=== PATIENT | female | born 1950 | race Caucasian/White ===

== ENCOUNTER 2022-09-23 14:17 | Emergency (ER) | payer MEDICARE ==
[2022-09-23 15:12] LABS: #Basophils 0.1 10x3/uL (0.0-0.2); #Monocytes 0.5 10x3/uL (0.0-1.1); #Neutrophils 12.1 10x3/uL (1.5-8.4); %Basophils 0.4 % (0.0-2.0); %Eosinophils 0.1 % (0.0-6.0); %Lymphocytes 11.6 % (18.0-47.0); %Monocytes 3.5 % (0.0-10.0); %Neutrophils 83.8 % (40.0-75.0); Hemoglobin 12.2 g/dL (12.0-15.5); Mean Corpuscular HGB CONC 35.3 g/dL (32.0-36.0); Mean Corpuscular Hemoglobin 31.6 pg (27.0-33.0); Mean Corpuscular Volume 89.6 fl (81.6-98.3); Mean Platelet Volume 11.8 fl (7.4-10.4); Platelet Count 273 10x3/uL (150-450); RBC Distribution Width 14.4 % (11.5-14.5); Red Blood Cell (RBC) Count 3.86 10x6/uL (3.90-5.03); White Blood Cell (WBC) Count 14.4 10x3/uL (3.5-10.5)
[2022-09-23 15:22] LABS: INR-International Normal Ratio 1.2; PTT 34.9 sec (22.0-33.0); Prothrombin Time 12.8 sec (9.5-12.1)
[2022-09-23 15:27] LABS: ALT (SGPT) 27 U/L (8-55); AST (SGOT) 24 U/L (5-34); Albumin 2.6 g/dL (3.4-4.8); Alkaline Phosphatase 184 U/L (40-110); Anion Gap 13 mmol/L (10-20); BUN (Urea Nitrogen) 27 mg/dL (9.8-20.1); Bilirubin, Total 0.7 mg/dL (0.2-1.2); Calc. Creatinine Clearance 0 mL/min (70-130); Calcium 8.1 mg/dL (7.8-10.44); Carbon Dioxide 18 mmol/L (23-31); Chloride 105 mmol/L (98-107); Estimated GFR 36; Globulin 2.6 g/dL (2.4-3.5); Glucose 256 mg/dL (80-115); Lipase 11 U/L (8-78); Magnesium 1.7 mg/dL (1.6-2.6); Potassium 4.2 mmol/L (3.5-5.1); Protein, Total 5.2 g/dL (5.8-8.1); Sodium 132 mmol/L (136-145)
[2022-09-23 16:01] LABS: SARS-CoV-2 NAA Rapid Test DETECTED (NotDetected)
== END 2022-09-23 18:20 | disposition home or self-care (01) ==
LOC: CSHERS 14:17
DX: U07.1 COVID-19 (principal); E03.9 Hypothyroidism, unspecified; K21.9 Gastro-esophageal reflux disease without esophagitis; I10 Essential (primary) hypertension
CPT/HCPCS: 71045; 83690; 83735; 83880; 84439; 84484; 85610; 85730; U0002; 80053; 84443; 85025; 99285

== ENCOUNTER 2022-09-25 10:31 | Inpatient (IN) | payer MEDICARE ==
[~2022-09-25 10:31] MED LIST: Iopamidol 370 76% 100 ML VIAL ONE
[2022-09-25 11:23] LABS: Bilirubin Neg (Negative); Blood, Urine Negative (Negative); Clarity Clear (Clear); Glucose, Urine (Dipstick) 250 mg/dL (Negative); Ketone, Urine 5 mg/dL (Negative); Leukocyte Negative (Negative); Nitrite Negative (Negative); Protein, Urine (Dipstick) Negative (Neg-Trace); Specific Gravity, Urine 1.015 (1.005-1.030); Urobilinogen Normal mg/dL (Less than 2)
[2022-09-25 11:24] LABS: #Monocytes 0.4 10x3/uL (0.0-1.1); #Neutrophils 12.7 10x3/uL (1.5-8.4); %Basophils 0.3 % (0.0-2.0); %Lymphocytes 6.1 % (18.0-47.0); %Monocytes 2.9 % (0.0-10.0); %Neutrophils 89.7 % (40.0-75.0); Hemoglobin 11.2 g/dL (12.0-15.5); Mean Corpuscular HGB CONC 34.6 g/dL (32.0-36.0); Mean Corpuscular Hemoglobin 31.6 pg (27.0-33.0); Mean Corpuscular Volume 91.5 fl (81.6-98.3); Mean Platelet Volume 12.2 fl (7.4-10.4); Platelet Count 252 10x3/uL (150-450); RBC Distribution Width 15.1 % (11.5-14.5); Red Blood Cell (RBC) Count 3.54 10x6/uL (3.90-5.03); White Blood Cell (WBC) Count 14.1 10x3/uL (3.5-10.5)
[2022-09-25 11:41] LABS: Acetaminophen Less than 10.0 mcg/mL (10.0-30.0); Alcohol Less than 10 mg/dL (Less than 10); Salicylate Less than 8.0 mg/dL (15.0-30.0)
[2022-09-25 11:43] LABS: ALT (SGPT) 25 U/L (8-55); AST (SGOT) 27 U/L (5-34); Albumin 2.3 g/dL (3.4-4.8); Alkaline Phosphatase 167 U/L (40-110); Anion Gap 17 mmol/L (10-20); BUN (Urea Nitrogen) 16 mg/dL (9.8-20.1); Bilirubin, Total 0.8 mg/dL (0.2-1.2); Calc. Creatinine Clearance 0 mL/min (70-130); Calcium 7.7 mg/dL (7.8-10.44); Carbon Dioxide 12 mmol/L (23-31); Chloride 107 mmol/L (98-107); Estimated GFR 40; Globulin 2.3 g/dL (2.4-3.5); Lipase 12 U/L (8-78); Potassium 4.4 mmol/L (3.5-5.1); Protein, Total 4.6 g/dL (5.8-8.1); Sodium 132 mmol/L (136-145)
[2022-09-25 11:49] LABS: Glucose 452 mg/dL (80-115)
[2022-09-25 11:50] LABS: Amphetamine Not Detected (NotDetected); Barbiturates Screen Not Detected (NotDetected); Benzodiazepine Screen Not Detected (NotDetected); Cocaine Metabolite Screen Not Detected (NotDetected); Methadone Not Detected (NotDetected); Methamphetamine Not Detected (NotDetected); Opiate Screen Detected (NotDetected); Oxycodone Screen Not Detected (NotDetected); Phencyclidine (PCP) Not Detected (NotDetected); THC/Cannabinoid Screen Not Detected (NotDetected); Tricyclic Screen Not Detected (NotDetected)
[2022-09-25] MEDS ORDERED: HumaLOG 300 UNITS/3 ML VIAL SC SCH (12:15)
[2022-09-25 14:44] LABS: Lactic Acid 3.3 mmol/L (0.5-2.2)
[2022-09-25] MEDS ORDERED: Benzonatate 100 MG CAP PO PRN (15:19)
[2022-09-25] MEDS ORDERED: Acetaminophen 650 MG Suppository PR PRN (15:19)
[2022-09-25] MEDS ORDERED: Ondansetron PF 4 MG/2 ML Vial IVP PRN (15:25)
[2022-09-25] MEDS ORDERED: Dextrose 50% Abboject 50 ML SYRINGE SLOW IVP PRN (15:28)
[2022-09-25] MEDS ORDERED: Dextrose 5% in Water 1,000 ML IV PRN (15:28)
[2022-09-25] MEDS ORDERED: Nicotine 14 MG PATCH TD SCH (15:30)
[2022-09-25 16:21] LABS: Troponin I 0.026 ng/mL (< 0.028)
[2022-09-25] MEDS ORDERED: Ventolin HFA Inhaler 60 PUFF INHALER INH PRN (17:36)
[2022-09-25] MEDS: Nicotine 14 MG PATCH TD SCH (18:15)
[2022-09-25] MEDS: Sodium Chloride 0.9% 1,000 ML IV SCH (18:15)
[2022-09-25 18:37] LABS: Troponin I 0.683 ng/mL (< 0.028)
[2022-09-25 20:03] VITALS: BMI 23.1
[2022-09-25] MEDS: (RENAL) NIRMATRELVIR 150 MG/RITONAVIR 100 MG TABLET PO SCH (20:51)
[2022-09-25] MEDS: HumaLOG 300 UNITS/3 ML VIAL SC PRN (23:58)
[2022-09-26 00:36] LABS: Troponin I 0.031 ng/mL (< 0.028)
[2022-09-26] MEDS: Sodium Chloride 0.9% 1,000 ML IV SCH (06:26)
[2022-09-26] MEDS: HumaLOG 300 UNITS/3 ML VIAL SC PRN ×2 (06:28→21:13)
[2022-09-26 07:48] LABS: Anion Gap 14 mmol/L (10-20); BUN (Urea Nitrogen) 15 mg/dL (9.8-20.1); Calc. Creatinine Clearance 47 mL/min (70-130); Calcium 7.3 mg/dL (7.8-10.44); Carbon Dioxide 13 mmol/L (23-31); Chloride 114 mmol/L (98-107); Estimated GFR 53; Glucose 189 mg/dL (80-115); Potassium 4.5 mmol/L (3.5-5.1); Sodium 136 mmol/L (136-145)
[2022-09-26 07:49] LABS: #Monocytes 0.6 10x3/uL (0.0-1.1); #Neutrophils 16.3 10x3/uL (1.5-8.4); %Basophils 0.2 % (0.0-2.0); %Eosinophils 0.1 % (0.0-6.0); %Lymphocytes 5.1 % (18.0-47.0); %Monocytes 3.3 % (0.0-10.0); %Neutrophils 90.8 % (40.0-75.0); Hemoglobin 10.8 g/dL (12.0-15.5); Mean Corpuscular HGB CONC 33.3 g/dL (32.0-36.0); Mean Corpuscular Hemoglobin 31.5 pg (27.0-33.0); Mean Corpuscular Volume 94.5 fl (81.6-98.3); Mean Platelet Volume 12.8 fl (7.4-10.4); Platelet Count 212 10x3/uL (150-450); RBC Distribution Width 15.3 % (11.5-14.5); Red Blood Cell (RBC) Count 3.43 10x6/uL (3.90-5.03)
[2022-09-26] MEDS: (RENAL) NIRMATRELVIR 150 MG/RITONAVIR 100 MG TABLET PO SCH ×2 (08:15→20:57)
[2022-09-26] MEDS: Acetaminophen 325 MG TAB PO PRN (08:40)
[2022-09-26] MEDS ORDERED: Lantus 1000 UNITS/10 ML VIAL SC SCH (13:00)
[2022-09-26] MEDS: Nicotine 14 MG PATCH TD SCH (14:35)
[2022-09-26] MEDS ORDERED: Piperacillin/Tazobactam 4.5 GM in Sodium Chloride 0.9% 100 ML IVPB SCH (16:00)
[2022-09-26] MEDS ORDERED: Vancomycin HCl 1 GM in Sodium Chloride 0.9% 250 ML 250 ML IVPB SCH (16:00)
[2022-09-26] MEDS ORDERED: Piperacillin/Tazobactam 3.375 GM in Sodium Chloride 0.9% 100 ML IVPB SCH (16:15)
[2022-09-26] MEDS: Liothyronine Sodium 5 MCG TAB PO SCH (20:56)
[2022-09-26] MEDS: Piperacillin/Tazobactam 3.375 GM in Sodium Chloride 0.9% 100 ML IVPB SCH (20:56)
[2022-09-27] MEDS: Piperacillin/Tazobactam 3.375 GM in Sodium Chloride 0.9% 100 ML IVPB SCH (04:17)
[2022-09-27 04:49] LABS: Anion Gap 11 mmol/L (10-20); BUN (Urea Nitrogen) 11 mg/dL (9.8-20.1); Calc. Creatinine Clearance 57 mL/min (70-130); Calcium 7.3 mg/dL (7.8-10.44); Carbon Dioxide 16 mmol/L (23-31); Chloride 116 mmol/L (98-107); Estimated GFR 67; Glucose 87 mg/dL (80-115); Potassium 3.2 mmol/L (3.5-5.1); Sodium 140 mmol/L (136-145)
[2022-09-27 05:35] LABS: #Monocytes 0.6 10x3/uL (0.0-1.1); #Neutrophils 11.3 10x3/uL (1.5-8.4); %Basophils 0.1 % (0.0-2.0); %Eosinophils 0.2 % (0.0-6.0); %Lymphocytes 14.2 % (18.0-47.0); %Monocytes 4.4 % (0.0-10.0); %Neutrophils 80.6 % (40.0-75.0); Hemoglobin 9.7 g/dL (12.0-15.5); Mean Corpuscular HGB CONC 35.9 g/dL (32.0-36.0); Mean Corpuscular Hemoglobin 31.6 pg (27.0-33.0); Mean Corpuscular Volume 87.9 fl (81.6-98.3); Mean Platelet Volume 12.7 fl (7.4-10.4); Platelet Count 246 10x3/uL (150-450); RBC Distribution Width 14.6 % (11.5-14.5); Red Blood Cell (RBC) Count 3.07 10x6/uL (3.90-5.03)
[2022-09-27] MEDS ORDERED: Levothyroxine Sodium 112 MCG TAB PO SCH (06:00)
[2022-09-27] MEDS ORDERED: Lantus 1000 UNITS/10 ML VIAL SC SCH ×2 (09:00→12:54)
[2022-09-27] MEDS ORDERED: Vancomycin HCl 750 MG in Sodium Chloride 0.9% 250 ML 250 ML IVPB SCH (09:00)
[2022-09-27] MEDS: Acetaminophen 325 MG TAB PO PRN (09:51)
[2022-09-27] MEDS: Liothyronine Sodium 5 MCG TAB PO SCH ×2 (09:52→21:01)
[2022-09-27] MEDS: (RENAL) NIRMATRELVIR 150 MG/RITONAVIR 100 MG TABLET PO SCH ×2 (09:54→22:54)
[2022-09-27] MEDS: HumaLOG 300 UNITS/3 ML VIAL SC PRN ×3 (10:00→17:35)
[2022-09-27] MEDS ORDERED: Levothyroxine 100 MCG SDV IVP SCH (13:30)
[2022-09-27] MEDS: Nicotine 14 MG PATCH TD SCH (13:52)
[2022-09-27 14:03] LABS: ALT (SGPT) 28 U/L (8-55); AST (SGOT) 39 U/L (5-34); Albumin 2.2 g/dL (3.4-4.8); Alkaline Phosphatase 166 U/L (40-110); Bilirubin, Direct 0.3 mg/dL (0.1-0.3); Bilirubin, Total 0.5 mg/dL (0.2-1.2); Protein, Total 4.6 g/dL (5.8-8.1)
[2022-09-27 14:23] LABS: Syphilis Antibody Nonreactive (Nonreactive); Syphilis Antibody Index 0.23 S/CO (<1.00 Non-Reactive)
[2022-09-27 14:24] LABS: HIV (1/2) Antibody/Antigen Non-Reactive (NonReactive); HIV 1/2 INDEX 0.06 S/CO (<1.00)
[2022-09-27] MEDS: cefTRIAXone\\ROCEPHIN 1 GM in Sodium Chloride 0.9% 100 ML IVPB SCH (14:28)
[2022-09-27] MEDS: metroNIDAZOLE 500 MG in Premix Bag 1 BAG IVPB SCH ×2 (14:31→21:01)
[2022-09-27 14:38] LABS: Free T4 (Free Thyroxine) 0.42 ng/dL (0.70-1.48)
[2022-09-27] MEDS ORDERED: URSODIOL 250 MG PO SCH (17:00)
[2022-09-27] MEDS: Atorvastatin Calcium 40 MG TAB PO SCH (21:01)
[2022-09-28] MEDS: metroNIDAZOLE 500 MG in Premix Bag 1 BAG IVPB SCH ×3 (05:44→19:18)
[2022-09-28] MEDS ORDERED: Levothyroxine 100 MCG SDV IVP SCH (06:00)
[2022-09-28 06:25] LABS: INR-International Normal Ratio 1.2; PTT 31.7 sec (22.0-33.0); Prothrombin Time 12.9 sec (9.5-12.1)
[2022-09-28 06:29] LABS: ALT (SGPT) 26 U/L (8-55); AST (SGOT) 31 U/L (5-34); Albumin 2.1 g/dL (3.4-4.8); Alkaline Phosphatase 143 U/L (40-110); Anion Gap 12 mmol/L (10-20); BUN (Urea Nitrogen) 8 mg/dL (9.8-20.1); Bilirubin, Total 0.4 mg/dL (0.2-1.2); Calc. Creatinine Clearance 64 mL/min (70-130); Calcium 7.7 mg/dL (7.8-10.44); Carbon Dioxide 18 mmol/L (23-31); Chloride 114 mmol/L (98-107); Estimated GFR 78; Globulin 2.3 g/dL (2.4-3.5); Protein, Total 4.4 g/dL (5.8-8.1); Sodium 141 mmol/L (136-145)
[2022-09-28 06:48] LABS: Critical Call Chemistry 2NO.LG; Glucose 19 mg/dL (80-115); Potassium 2.6 mmol/L (3.5-5.1)
[2022-09-28] MEDS ORDERED: D5 1/2 NS w/40 mEq KCL 1,000 ML IV SCH (07:15)
[2022-09-28] MEDS ORDERED: Potassium Chloride 20 MEQ TAB PO SCH ×2 (08:00→15:30)
[2022-09-28] MEDS: Potassium Chloride 20 MEQ in Premix Bag 1 BAG IVPB SCH ×2 (08:38→12:20)
[2022-09-28] MEDS: Liothyronine Sodium 5 MCG TAB PO SCH ×2 (08:39→19:18)
[2022-09-28 08:48] LABS: #Monocytes 0.8 10x3/uL (0.0-1.1); %Basophils 0.2 % (0.0-2.0); %Lymphocytes 4.5 % (18.0-47.0); %Monocytes 4.5 % (0.0-10.0); %Neutrophils 89.7 % (40.0-75.0); Hemoglobin 11.3 g/dL (12.0-15.5); Mean Corpuscular Hemoglobin 32.1 pg (27.0-33.0); Mean Corpuscular Volume 91.8 fl (81.6-98.3); Mean Platelet Volume 12.4 fl (7.4-10.4); Platelet Count 272 10x3/uL (150-450); RBC Distribution Width 15.6 % (11.5-14.5); Red Blood Cell (RBC) Count 3.52 10x6/uL (3.90-5.03); White Blood Cell (WBC) Count 17.9 10x3/uL (3.5-10.5)
[2022-09-28] MEDS: (RENAL) NIRMATRELVIR 150 MG/RITONAVIR 100 MG TABLET PO SCH (10:44)
[2022-09-28] MEDS: Clopidogrel Bisulfate 75 MG TAB PO SCH (10:47)
[2022-09-28 11:01] LABS: Magnesium 1.4 mg/dL (1.6-2.6); Potassium 3.2 mmol/L (3.5-5.1)
[2022-09-28] MEDS ORDERED: Levothyroxine Sodium 100 MCG TAB PO SCH (12:00)
[2022-09-28] MEDS ORDERED: Levothyroxine 150 MCG TAB PO SCH (12:00)
[2022-09-28] MEDS: Acetaminophen 325 MG TAB PO PRN (12:21)
[2022-09-28] MEDS ORDERED: Aspirin 81 mg Enteric Coated Tablet PO SCH (14:00)
[2022-09-28] MEDS ORDERED: Magnesium 2 GM/50 ML(in water) 2 GM in Premix Bag 1 BAG IVPB SCH (15:30)
[2022-09-28] MEDS: cefTRIAXone\\ROCEPHIN 1 GM in Sodium Chloride 0.9% 100 ML IVPB SCH (16:21)
[2022-09-28] MEDS: Nicotine 14 MG PATCH TD SCH (18:55)
[2022-09-28] MEDS: HumaLOG 300 UNITS/3 ML VIAL SC PRN (18:58)
[2022-09-28] MEDS: Atorvastatin Calcium 40 MG TAB PO SCH (19:18)
[2022-09-29] MEDS: (RENAL) NIRMATRELVIR 150 MG/RITONAVIR 100 MG TABLET PO SCH ×3 (00:19→21:43)
[2022-09-29 05:40] LABS: ALT (SGPT) 26 U/L (8-55); AST (SGOT) 28 U/L (5-34); Albumin 2.1 g/dL (3.4-4.8); Alkaline Phosphatase 149 U/L (40-110); Anion Gap 10 mmol/L (10-20); BUN (Urea Nitrogen) 5 mg/dL (9.8-20.1); Bilirubin, Total 0.3 mg/dL (0.2-1.2); Calc. Creatinine Clearance 73 mL/min (70-130); Calcium 7.7 mg/dL (7.8-10.44); Carbon Dioxide 21 mmol/L (23-31); Cardiac Risk 1.6 (Less than 4.5); Chloride 115 mmol/L (98-107); Cholesterol 106 mg/dl (< 200 Desired); Estimated GFR 91; Globulin 2.3 g/dL (2.4-3.5); Glucose 83 mg/dL (80-115); HDL Cholesterol 67 mg/dL (>60 Neg Risk); LDL Cholesterol, Calculated 31 mg/dL; Potassium 3.5 mmol/L (3.5-5.1); Protein, Total 4.4 g/dL (5.8-8.1); Sodium 142 mmol/L (136-145); Triglycerides 41 mg/dL (Less than 150)
[2022-09-29 05:47] LABS: #Eosinphils 0.1 10x3/uL (0.0-0.5); #Monocytes 0.8 10x3/uL (0.0-1.1); #Neutrophils 13.3 10x3/uL (1.5-8.4); %Basophils 0.2 % (0.0-2.0); %Eosinophils 0.7 % (0.0-6.0); %Lymphocytes 12.9 % (18.0-47.0); %Monocytes 4.8 % (0.0-10.0); %Neutrophils 80.8 % (40.0-75.0); Hemoglobin 10.8 g/dL (12.0-15.5); Mean Corpuscular HGB CONC 36.7 g/dL (32.0-36.0); Mean Corpuscular Hemoglobin 32.1 pg (27.0-33.0); Mean Corpuscular Volume 87.5 fl (81.6-98.3); Mean Platelet Volume 12.4 fl (7.4-10.4); Platelet Count 260 10x3/uL (150-450); RBC Distribution Width 14.7 % (11.5-14.5); Red Blood Cell (RBC) Count 3.36 10x6/uL (3.90-5.03); White Blood Cell (WBC) Count 16.5 10x3/uL (3.5-10.5)
[2022-09-29 06:03] LABS: Free T4 (Free Thyroxine) 0.66 ng/dL (0.70-1.48); Thyroid Stimulating Hormone 8.9699 uIU/mL (0.35-4.94)
[2022-09-29] MEDS: Levothyroxine 150 MCG TAB PO SCH (06:54)
[2022-09-29] MEDS: metroNIDAZOLE 500 MG in Premix Bag 1 BAG IVPB SCH ×3 (06:54→21:43)
[2022-09-29] MEDS: Acetaminophen 325 MG TAB PO PRN ×2 (09:06→20:30)
[2022-09-29] MEDS: Liothyronine Sodium 5 MCG TAB PO SCH ×2 (09:07→20:30)
[2022-09-29] MEDS: Aspirin 81 mg Enteric Coated Tablet PO SCH (09:07)
[2022-09-29] MEDS: Clopidogrel Bisulfate 75 MG TAB PO SCH (09:07)
[2022-09-29] MEDS: cefTRIAXone\\ROCEPHIN 1 GM in Sodium Chloride 0.9% 100 ML IVPB SCH (14:25)
[2022-09-29] MEDS ORDERED: Iopamidol 300 61% 100 ML VIAL FS ONE (14:58)
[2022-09-29] MEDS: Atorvastatin Calcium 40 MG TAB PO SCH (20:30)
[2022-09-30] MEDS: Acetaminophen 325 MG TAB PO PRN (04:15)
[2022-09-30 05:10] LABS: #Eosinphils 0.1 10x3/uL (0.0-0.5); #Monocytes 0.7 10x3/uL (0.0-1.1); #Neutrophils 11.1 10x3/uL (1.5-8.4); %Basophils 0.2 % (0.0-2.0); %Eosinophils 0.4 % (0.0-6.0); %Lymphocytes 9.9 % (18.0-47.0); %Monocytes 5.3 % (0.0-10.0); %Neutrophils 83.2 % (40.0-75.0); Hemoglobin 10.3 g/dL (12.0-15.5); Mean Corpuscular HGB CONC 36.4 g/dL (32.0-36.0); Mean Corpuscular Hemoglobin 31.8 pg (27.0-33.0); Mean Corpuscular Volume 87.3 fl (81.6-98.3); Mean Platelet Volume 12.4 fl (7.4-10.4); Platelet Count 276 10x3/uL (150-450); RBC Distribution Width 14.7 % (11.5-14.5); Red Blood Cell (RBC) Count 3.24 10x6/uL (3.90-5.03); White Blood Cell (WBC) Count 13.3 10x3/uL (3.5-10.5)
[2022-09-30 05:20] LABS: ALT (SGPT) 24 U/L (8-55); AST (SGOT) 27 U/L (5-34); Albumin 2.1 g/dL (3.4-4.8); Alkaline Phosphatase 157 U/L (40-110); Anion Gap 14 mmol/L (10-20); BUN (Urea Nitrogen) Less than 4 mg/dL (9.8-20.1); Bilirubin, Total 0.4 mg/dL (0.2-1.2); Calc. Creatinine Clearance 75 mL/min (70-130); Calcium 7.4 mg/dL (7.8-10.44); Carbon Dioxide 18 mmol/L (23-31); Chloride 111 mmol/L (98-107); Estimated GFR 93; Globulin 2.2 g/dL (2.4-3.5); Glucose 246 mg/dL (80-115); Protein, Total 4.3 g/dL (5.8-8.1); Sodium 140 mmol/L (136-145)
[2022-09-30] MEDS: Levothyroxine 150 MCG TAB PO SCH (06:38)
[2022-09-30] MEDS: metroNIDAZOLE 500 MG in Premix Bag 1 BAG IVPB SCH ×3 (06:38→20:36)
[2022-09-30] MEDS ORDERED: Electrolyte Replacement Protocol 1 EACH FS SCH (08:15)
[2022-09-30] MEDS ORDERED: Furosemide 20 MG/2 ML VIAL SLOW IVP SCH (09:00)
[2022-09-30] MEDS ORDERED: Potassium Chloride 20 MEQ TAB PO SCH (09:00)
[2022-09-30] MEDS: Nicotine 14 MG PATCH TD SCH ×2 (10:21→20:36)
[2022-09-30] MEDS: Clopidogrel Bisulfate 75 MG TAB PO SCH (10:22)
[2022-09-30] MEDS: Liothyronine Sodium 5 MCG TAB PO SCH ×2 (10:22→20:36)
[2022-09-30] MEDS: Aspirin 81 mg Enteric Coated Tablet PO SCH (10:22)
[2022-09-30] MEDS: Ondansetron ODT 4 MG TAB PO PRN (10:22)
[2022-09-30] MEDS: (RENAL) NIRMATRELVIR 150 MG/RITONAVIR 100 MG TABLET PO SCH (10:28)
[2022-09-30] MEDS: HumaLOG 300 UNITS/3 ML VIAL SC PRN ×2 (13:42→17:20)
[2022-09-30 15:04] LABS: Magnesium 1.5 mg/dL (1.6-2.6)
[2022-09-30] MEDS ORDERED: Magnesium 2 GM/50 ML(in water) 2 GM in Premix Bag 1 BAG IVPB SCH (17:15)
[2022-09-30] MEDS ORDERED: Potassium Bicarbonate/Cit Ac 20 MEQ TAB PO SCH ×2 (17:15→23:59)
[2022-09-30] MEDS: Potassium Bicarbonate/Cit Ac 25 MEQ TAB PO SCH (17:19)
[2022-09-30] MEDS: Atorvastatin Calcium 40 MG TAB PO SCH (20:36)
[2022-10-01 05:17] LABS: #Eosinphils 0.1 10x3/uL (0.0-0.5); #Neutrophils 15.8 10x3/uL (1.5-8.4); %Basophils 0.2 % (0.0-2.0); %Eosinophils 0.3 % (0.0-6.0); %Lymphocytes 8.8 % (18.0-47.0); %Monocytes 5.2 % (0.0-10.0); %Neutrophils 84.6 % (40.0-75.0); Hemoglobin 10.6 g/dL (12.0-15.5); Mean Corpuscular HGB CONC 36.1 g/dL (32.0-36.0); Mean Corpuscular Hemoglobin 31.5 pg (27.0-33.0); Mean Corpuscular Volume 87.2 fl (81.6-98.3); Mean Platelet Volume 12.4 fl (7.4-10.4); Platelet Count 304 10x3/uL (150-450); RBC Distribution Width 15.3 % (11.5-14.5); Red Blood Cell (RBC) Count 3.37 10x6/uL (3.90-5.03); White Blood Cell (WBC) Count 18.7 10x3/uL (3.5-10.5)
[2022-10-01 05:19] LABS: ALT (SGPT) 22 U/L (8-55); AST (SGOT) 20 U/L (5-34); Albumin 2.1 g/dL (3.4-4.8); Alkaline Phosphatase 162 U/L (40-110); Anion Gap 14 mmol/L (10-20); BUN (Urea Nitrogen) 4 mg/dL (9.8-20.1); Bilirubin, Total 0.3 mg/dL (0.2-1.2); Calc. Creatinine Clearance 72 mL/min (70-130); Calcium 7.7 mg/dL (7.8-10.44); Carbon Dioxide 22 mmol/L (23-31); Chloride 109 mmol/L (98-107); Estimated GFR 90; Globulin 2.3 g/dL (2.4-3.5); Glucose 219 mg/dL (80-115); Magnesium 1.9 mg/dL (1.6-2.6); Potassium 4.3 mmol/L (3.5-5.1); Protein, Total 4.4 g/dL (5.8-8.1); Sodium 141 mmol/L (136-145)
[2022-10-01 05:22] LABS: Phosphorus 1.1 mg/dL (2.3-4.7)
[2022-10-01] MEDS: Levothyroxine 150 MCG TAB PO SCH (05:52)
[2022-10-01] MEDS ORDERED: Potassium Phosphate 30 MMOL, Admixture Fee 1 EACH in Sodium Chloride 0.9% 250 ML 250 ML IVPB SCH (06:00)
[2022-10-01] MEDS ORDERED: Magnesium 2 GM/50 ML(in water) 2 GM in Premix Bag 1 BAG IVPB SCH (06:00)
[2022-10-01] MEDS ORDERED: PHOS-NAK 1 PKT PACK PO SCH (06:00)
[2022-10-01] MEDS: Clopidogrel Bisulfate 75 MG TAB PO SCH (08:48)
[2022-10-01] MEDS: Liothyronine Sodium 5 MCG TAB PO SCH ×2 (08:48→20:41)
[2022-10-01] MEDS: Potassium Bicarbonate/Cit Ac 25 MEQ TAB PO SCH ×2 (08:48→16:41)
[2022-10-01] MEDS: Aspirin 81 mg Enteric Coated Tablet PO SCH (08:48)
[2022-10-01] MEDS: metroNIDAZOLE 500 MG in Premix Bag 1 BAG IVPB SCH ×3 (08:48→20:40)
[2022-10-01] MEDS: Furosemide 20 MG/2 ML VIAL SLOW IVP SCH (08:53)
[2022-10-01] MEDS ORDERED: Furosemide 40 MG TAB PO SCH (09:00)
[2022-10-01] MEDS: HumaLOG 300 UNITS/3 ML VIAL SC PRN ×2 (11:43→16:41)
[2022-10-01] MEDS: Ondansetron ODT 4 MG TAB PO PRN (11:44)
[2022-10-01] MEDS: Nicotine 14 MG PATCH TD SCH (16:41)
[2022-10-01] MEDS: Lantus 1000 UNITS/10 ML VIAL SC SCH (20:41)
[2022-10-01] MEDS: Atorvastatin Calcium 40 MG TAB PO SCH (20:41)
[2022-10-01] MEDS: Acetaminophen 325 MG TAB PO PRN (21:34)
[2022-10-02] MEDS ORDERED: HYDROcodone/Acetaminophen 5/325 mg Tablet PO SCH (03:00)
[2022-10-02] MEDS: metroNIDAZOLE 500 MG in Premix Bag 1 BAG IVPB SCH ×3 (05:11→19:38)
[2022-10-02] MEDS: Levothyroxine 150 MCG TAB PO SCH (05:11)
[2022-10-02 05:29] LABS: #Eosinphils 0.1 10x3/uL (0.0-0.5); #Monocytes 1.1 10x3/uL (0.0-1.1); #Neutrophils 12.1 10x3/uL (1.5-8.4); %Basophils 0.1 % (0.0-2.0); %Eosinophils 0.5 % (0.0-6.0); %Lymphocytes 11.1 % (18.0-47.0); %Monocytes 7.5 % (0.0-10.0); %Neutrophils 79.9 % (40.0-75.0); Hemoglobin 9.5 g/dL (12.0-15.5); Mean Corpuscular HGB CONC 36.4 g/dL (32.0-36.0); Mean Corpuscular Volume 87.9 fl (81.6-98.3); Mean Platelet Volume 11.9 fl (7.4-10.4); Platelet Count 332 10x3/uL (150-450); RBC Distribution Width 15.1 % (11.5-14.5); Red Blood Cell (RBC) Count 2.97 10x6/uL (3.90-5.03); White Blood Cell (WBC) Count 15.1 10x3/uL (3.5-10.5)
[2022-10-02 05:43] LABS: ALT (SGPT) 18 U/L (8-55); AST (SGOT) 16 U/L (5-34); Alkaline Phosphatase 180 U/L (40-110); Anion Gap 12 mmol/L (10-20); BUN (Urea Nitrogen) 6 mg/dL (9.8-20.1); Bilirubin, Total 0.3 mg/dL (0.2-1.2); Calc. Creatinine Clearance 75 mL/min (70-130); Calcium 7.7 mg/dL (7.8-10.44); Carbon Dioxide 24 mmol/L (23-31); Chloride 107 mmol/L (98-107); Estimated GFR 93; Globulin 2.1 g/dL (2.4-3.5); Glucose 160 mg/dL (80-115); Magnesium 1.9 mg/dL (1.6-2.6); Potassium 3.8 mmol/L (3.5-5.1); Protein, Total 4.1 g/dL (5.8-8.1); Sodium 139 mmol/L (136-145)
[2022-10-02 06:03] LABS: Phosphorus 1.4 mg/dL (2.3-4.7)
[2022-10-02] MEDS: PHOS-NAK 1 PKT PACK PO SCH ×4 (06:10→16:55)
[2022-10-02] MEDS ORDERED: Magnesium 2 GM/50 ML(in water) 2 GM in Premix Bag 1 BAG IVPB SCH (06:30)
[2022-10-02] MEDS ORDERED: Potassium Phosphate 30 MMOL in Sodium Chloride 0.9% 250 ML 250 ML IVPB SCH (06:30)
[2022-10-02] MEDS ORDERED: Loratadine 10 MG TAB PO PRN (07:50)
[2022-10-02] MEDS ORDERED: Sodium Chloride 0.65% Nasal 44 ML BOT EA NARE PRN (07:50)
[2022-10-02] MEDS ORDERED: Diphenoxylate HCl/Atropine Tablet PO PRN (07:50)
[2022-10-02] MEDS ORDERED: Diphenoxylate HCl/Atropine Tablet PO SCH (08:00)
[2022-10-02] MEDS: Potassium Bicarbonate/Cit Ac 25 MEQ TAB PO SCH ×2 (08:59→16:55)
[2022-10-02] MEDS: Liothyronine Sodium 5 MCG TAB PO SCH ×2 (09:00→19:39)
[2022-10-02] MEDS: Clopidogrel Bisulfate 75 MG TAB PO SCH (09:00)
[2022-10-02] MEDS: Aspirin 81 mg Enteric Coated Tablet PO SCH (09:00)
[2022-10-02] MEDS: Furosemide 20 MG/2 ML VIAL SLOW IVP SCH (09:07)
[2022-10-02] MEDS: Ondansetron ODT 4 MG TAB PO PRN (09:10)
[2022-10-02] MEDS: Cholestyramine/Aspartame 4 gm Packet PO SCH ×2 (11:46→19:39)
[2022-10-02] MEDS: HumaLOG 300 UNITS/3 ML VIAL SC PRN ×2 (12:13→17:05)
[2022-10-02 13:20] LABS: Campy jejuni + coli by PCR Negative (Negative); STEC Shiga Toxin 1+2 Negative (Negative); Salmonella spp. by PCR Negative (Negative); Shigella spp + EIEC by PCR Negative (Negative)
[2022-10-02] MEDS: Nicotine 14 MG PATCH TD SCH (16:55)
[2022-10-02] MEDS: Atorvastatin Calcium 40 MG TAB PO SCH (19:39)
[2022-10-02] MEDS: Lantus 1000 UNITS/10 ML VIAL SC SCH (19:40)
[2022-10-03] MEDS: Ondansetron ODT 4 MG TAB PO PRN ×2 (00:46→08:42)
[2022-10-03] MEDS: Levothyroxine 150 MCG TAB PO SCH (05:16)
[2022-10-03] MEDS: metroNIDAZOLE 500 MG in Premix Bag 1 BAG IVPB SCH ×2 (05:16→15:00)
[2022-10-03] MEDS: Acetaminophen 325 MG TAB PO PRN ×2 (05:20→22:17)
[2022-10-03 06:07] LABS: #Eosinphils 0.2 10x3/uL (0.0-0.5); #Monocytes 1.1 10x3/uL (0.0-1.1); #Neutrophils 10.2 10x3/uL (1.5-8.4); %Basophils 0.1 % (0.0-2.0); %Eosinophils 1.1 % (0.0-6.0); %Lymphocytes 12.6 % (18.0-47.0); %Monocytes 8.6 % (0.0-10.0); %Neutrophils 76.4 % (40.0-75.0); Hemoglobin 9.7 g/dL (12.0-15.5); Mean Corpuscular HGB CONC 35.7 g/dL (32.0-36.0); Mean Corpuscular Hemoglobin 31.6 pg (27.0-33.0); Mean Corpuscular Volume 88.6 fl (81.6-98.3); Mean Platelet Volume 11.8 fl (7.4-10.4); Platelet Count 342 10x3/uL (150-450); RBC Distribution Width 15.2 % (11.5-14.5); Red Blood Cell (RBC) Count 3.07 10x6/uL (3.90-5.03); White Blood Cell (WBC) Count 13.3 10x3/uL (3.5-10.5)
[2022-10-03 06:26] LABS: ALT (SGPT) 15 U/L (8-55); AST (SGOT) 16 U/L (5-34); Albumin 1.9 g/dL (3.4-4.8); Alkaline Phosphatase 178 U/L (40-110); Anion Gap 8 mmol/L (10-20); BUN (Urea Nitrogen) 5 mg/dL (9.8-20.1); Bilirubin, Total 0.3 mg/dL (0.2-1.2); Calc. Creatinine Clearance 81 mL/min (70-130); Calcium 7.8 mg/dL (7.8-10.44); Carbon Dioxide 28 mmol/L (23-31); Chloride 106 mmol/L (98-107); Estimated GFR 95; Globulin 2.1 g/dL (2.4-3.5); Glucose 82 mg/dL (80-115); Magnesium 1.9 mg/dL (1.6-2.6); Phosphorus 2.2 mg/dL (2.3-4.7); Potassium 3.7 mmol/L (3.5-5.1); Sodium 138 mmol/L (136-145)
[2022-10-03] MEDS ORDERED: Magnesium 2 GM/50 ML(in water) 2 GM in Premix Bag 1 BAG IVPB SCH (08:00)
[2022-10-03] MEDS: Furosemide 20 MG/2 ML VIAL SLOW IVP SCH (08:22)
[2022-10-03] MEDS: Potassium Bicarbonate/Cit Ac 25 MEQ TAB PO SCH ×2 (08:22→17:58)
[2022-10-03] MEDS: Liothyronine Sodium 5 MCG TAB PO SCH ×2 (08:22→21:14)
[2022-10-03] MEDS: Aspirin 81 mg Enteric Coated Tablet PO SCH (08:22)
[2022-10-03] MEDS: Clopidogrel Bisulfate 75 MG TAB PO SCH (08:22)
[2022-10-03] MEDS: Cholestyramine/Aspartame 4 gm Packet PO SCH ×2 (09:10→21:16)
[2022-10-03] MEDS ORDERED: Promethazine 25 MG TAB PO PRN (10:42)
[2022-10-03] MEDS ORDERED: Promethazine HCl 12.5 MG in Sodium Chloride 0.9% 50 ML IVPB SCH (11:00)
[2022-10-03] MEDS: Albumin 25% 25 GM/100 ML BOT IVPB SCH ×2 (11:50→18:02)
[2022-10-03] MEDS: HumaLOG 300 UNITS/3 ML VIAL SC PRN ×2 (12:46→17:54)
[2022-10-03] MEDS: Nicotine 14 MG PATCH TD SCH (18:02)
[2022-10-03] MEDS ORDERED: Pantoprazole 40 MG VIAL IVP SCH (20:00)
[2022-10-03] MEDS: Apixaban 5 MG TAB PO SCH (21:14)
[2022-10-03] MEDS: Atorvastatin Calcium 40 MG TAB PO SCH (21:14)
[2022-10-04] MEDS ORDERED: Ondansetron PF 4 MG/2 ML Vial IVP SCH (04:15)
[2022-10-04 06:06] LABS: #Eosinphils 0.1 10x3/uL (0.0-0.5); #Monocytes 0.8 10x3/uL (0.0-1.1); #Neutrophils 8.5 10x3/uL (1.5-8.4); %Basophils 0.3 % (0.0-2.0); %Eosinophils 0.9 % (0.0-6.0); %Lymphocytes 12.1 % (18.0-47.0); %Monocytes 7.6 % (0.0-10.0); %Neutrophils 77.3 % (40.0-75.0); Hemoglobin 9.4 g/dL (12.0-15.5); Mean Corpuscular HGB CONC 35.7 g/dL (32.0-36.0); Mean Corpuscular Hemoglobin 31.9 pg (27.0-33.0); Mean Corpuscular Volume 89.2 fl (81.6-98.3); Mean Platelet Volume 11.6 fl (7.4-10.4); Platelet Count 350 10x3/uL (150-450); RBC Distribution Width 15.5 % (11.5-14.5); Red Blood Cell (RBC) Count 2.95 10x6/uL (3.90-5.03)
[2022-10-04 06:23] LABS: ALT (SGPT) 11 U/L (8-55); AST (SGOT) 16 U/L (5-34); Albumin 2.6 g/dL (3.4-4.8); Alkaline Phosphatase 153 U/L (40-110); Anion Gap 10 mmol/L (10-20); BUN (Urea Nitrogen) 4 mg/dL (9.8-20.1); Bilirubin, Total 0.6 mg/dL (0.2-1.2); Calc. Creatinine Clearance 78 mL/min (70-130); Calcium 8.1 mg/dL (7.8-10.44); Carbon Dioxide 27 mmol/L (23-31); Chloride 102 mmol/L (98-107); Estimated GFR 94; Globulin 1.6 g/dL (2.4-3.5); Glucose 296 mg/dL (80-115); Magnesium 1.8 mg/dL (1.6-2.6); Potassium 4.2 mmol/L (3.5-5.1); Protein, Total 4.2 g/dL (5.8-8.1); Sodium 135 mmol/L (136-145)
[2022-10-04] MEDS: HumaLOG 300 UNITS/3 ML VIAL SC PRN ×3 (06:29→17:28)
[2022-10-04] MEDS: Levothyroxine 150 MCG TAB PO SCH (06:29)
[2022-10-04] MEDS ORDERED: Magnesium 2 GM/50 ML(in water) 2 GM in Premix Bag 1 BAG IVPB SCH (09:00)
[2022-10-04] MEDS: Aspirin 81 mg Enteric Coated Tablet PO SCH (09:07)
[2022-10-04] MEDS: Apixaban 5 MG TAB PO SCH ×2 (09:07→21:55)
[2022-10-04] MEDS: Clopidogrel Bisulfate 75 MG TAB PO SCH (09:08)
[2022-10-04] MEDS: Liothyronine Sodium 5 MCG TAB PO SCH ×2 (09:08→20:35)
[2022-10-04] MEDS: Cholestyramine/Aspartame 4 gm Packet PO SCH ×2 (09:09→22:16)
[2022-10-04] MEDS: Pantoprazole 40 MG VIAL IVP SCH (09:09)
[2022-10-04 13:08] LABS: INR-International Normal Ratio 1.8; PTT 43.7 sec (22.9-36.1); Prothrombin Time 21.8 sec (12.0-14.7)
[2022-10-04 13:09] LABS: D-Dimer Test 0.47 *mcg/mL (0.27-0.43)
[2022-10-04] MEDS: Nicotine 14 MG PATCH TD SCH (17:29)
[2022-10-04] MEDS: Atorvastatin Calcium 40 MG TAB PO SCH (20:35)
[2022-10-05] MEDS: Levothyroxine 150 MCG TAB PO SCH (05:00)
[2022-10-05 06:39] LABS: ALT (SGPT) 10 U/L (8-55); AST (SGOT) 13 U/L (5-34); Albumin 2.3 g/dL (3.4-4.8); Alkaline Phosphatase 154 U/L (40-110); Anion Gap 11 mmol/L (10-20); BUN (Urea Nitrogen) 5 mg/dL (9.8-20.1); Bilirubin, Total 0.5 mg/dL (0.2-1.2); Calc. Creatinine Clearance 80 mL/min (70-130); Carbon Dioxide 26 mmol/L (23-31); Chloride 103 mmol/L (98-107); Estimated GFR 95; Glucose 295 mg/dL (80-115); Potassium 3.8 mmol/L (3.5-5.1); Protein, Total 4.3 g/dL (5.8-8.1); Sodium 136 mmol/L (136-145)
[2022-10-05] MEDS: Acetaminophen 325 MG TAB PO PRN (07:48)
[2022-10-05] MEDS: Apixaban 5 MG TAB PO SCH ×2 (08:49→21:27)
[2022-10-05] MEDS: Clopidogrel Bisulfate 75 MG TAB PO SCH (08:49)
[2022-10-05] MEDS: metFORMIN 500 MG TAB PO SCH (08:49)
[2022-10-05] MEDS: Liothyronine Sodium 5 MCG TAB PO SCH ×2 (08:49→21:29)
[2022-10-05] MEDS: Aspirin 81 mg Enteric Coated Tablet PO SCH (08:49)
[2022-10-05] MEDS: Furosemide 20 MG TAB PO SCH (08:49)
[2022-10-05] MEDS: Pantoprazole 40 MG VIAL IVP SCH (08:50)
[2022-10-05] MEDS: Cholestyramine/Aspartame 4 gm Packet PO SCH ×2 (10:14→23:23)
[2022-10-05] MEDS: HumaLOG 300 UNITS/3 ML VIAL SC PRN ×3 (12:41→21:29)
[2022-10-05 14:33] LABS: Protein C Activity 90 % (78-152)
[2022-10-05 14:39] LABS: Factor VIII Test 160.3 % ACTIVE (56-157)
[2022-10-05 16:21] LABS: HEX PHOS LA Tube 1 49.7 SEC; HEX PHOS LA Tube 2 44.5 SEC; Hexagonal Phospholipid Neut 5.2 SEC (0-8.0)
[2022-10-05] MEDS: Nicotine 14 MG PATCH TD SCH (18:26)
[2022-10-05] MEDS: Atorvastatin Calcium 40 MG TAB PO SCH (21:28)
[2022-10-06 05:30] LABS: ALT (SGPT) 11 U/L (8-55); AST (SGOT) 22 U/L (5-34); Albumin 2.3 g/dL (3.4-4.8); Alkaline Phosphatase 222 U/L (40-110); Anion Gap 9 mmol/L (10-20); BUN (Urea Nitrogen) 10 mg/dL (9.8-20.1); Bilirubin, Total 0.4 mg/dL (0.2-1.2); Calc. Creatinine Clearance 80 mL/min (70-130); Calcium 8.1 mg/dL (7.8-10.44); Carbon Dioxide 26 mmol/L (23-31); Chloride 105 mmol/L (98-107); Estimated GFR 95; Glucose 146 mg/dL (80-115); Potassium 3.4 mmol/L (3.5-5.1); Protein, Total 4.3 g/dL (5.8-8.1); Sodium 137 mmol/L (136-145)
[2022-10-06] MEDS: Levothyroxine 150 MCG TAB PO SCH (07:05)
[2022-10-06] MEDS: HumaLOG 300 UNITS/3 ML VIAL SC PRN ×3 (07:05→22:09)
[2022-10-06] MEDS ORDERED: Potassium Chloride 20 MEQ TAB PO SCH ×2 (08:00→08:15)
[2022-10-06] MEDS: Furosemide 20 MG TAB PO SCH (11:03)
[2022-10-06] MEDS: Apixaban 5 MG TAB PO SCH (11:03)
[2022-10-06] MEDS: Clopidogrel Bisulfate 75 MG TAB PO SCH (11:03)
[2022-10-06] MEDS: Liothyronine Sodium 5 MCG TAB PO SCH ×2 (11:03→20:53)
[2022-10-06] MEDS: metFORMIN 500 MG TAB PO SCH (11:03)
[2022-10-06] MEDS ORDERED: Potassium Bicarbonate/Cit Ac 20 MEQ TAB PO SCH (11:30)
[2022-10-06 13:55] LABS: Cardiolipin IgA Ab 4.2 APL-U/mL (<14 Negative); Cardiolipin IgG Ab 1.1 GPL-U/mL (<10 Negative); EliA APS New Method **** NEW METHOD ****
[2022-10-06] MEDS: Cholestyramine/Aspartame 4 gm Packet PO SCH ×2 (14:41→22:09)
[2022-10-06] MEDS: Nicotine 14 MG PATCH TD SCH (17:32)
[2022-10-06] MEDS ORDERED: Pantoprazole 40 MG VIAL IVP SCH (20:15)
[2022-10-06 20:41] LABS: INR-International Normal Ratio 1.2; PTT 32.2 sec (22.0-33.0)
[2022-10-06 20:47] LABS: #Monocytes 1.4 10x3/uL (0.0-1.1); #Neutrophils 12.2 10x3/uL (1.5-8.4); %Basophils 0.2 % (0.0-2.0); %Eosinophils 0.1 % (0.0-6.0); %Lymphocytes 9.1 % (18.0-47.0); %Monocytes 8.9 % (0.0-10.0); %Neutrophils 80.5 % (40.0-75.0); Mean Corpuscular HGB CONC 34.9 g/dL (32.0-36.0); Mean Corpuscular Hemoglobin 31.6 pg (27.0-33.0); Mean Corpuscular Volume 90.5 fl (81.6-98.3); Mean Platelet Volume 10.9 fl (7.4-10.4); Platelet Count 383 10x3/uL (150-450); RBC Distribution Width 15.6 % (11.5-14.5); Red Blood Cell (RBC) Count 2.53 10x6/uL (3.90-5.03); White Blood Cell (WBC) Count 15.2 10x3/uL (3.5-10.5)
[2022-10-06] MEDS: Atorvastatin Calcium 40 MG TAB PO SCH (20:53)
[2022-10-06] MEDS ORDERED: Sodium Chloride 0.9% 1,000 ML IV SCH (21:00)
[2022-10-06] MEDS: Pantoprazole 80 MG in Sodium Chloride 0.9% 100 ML IVPB SCH (21:05)
[2022-10-06] MEDS: Sodium Chloride 0.9% 1,000 ML IV SCH (22:20)
[2022-10-07 00:27] LABS: Hemoglobin 8.1 g/dL (12.0-15.5)
[2022-10-07] MEDS: Acetaminophen 325 MG TAB PO PRN (03:45)
[2022-10-07 04:40] LABS: #Eosinphils 0.1 10x3/uL (0.0-0.5); #Monocytes 1.1 10x3/uL (0.0-1.1); #Neutrophils 9.9 10x3/uL (1.5-8.4); %Basophils 0.3 % (0.0-2.0); %Eosinophils 0.4 % (0.0-6.0); %Lymphocytes 12.7 % (18.0-47.0); %Monocytes 8.2 % (0.0-10.0); %Neutrophils 77.2 % (40.0-75.0); Hemoglobin 7.8 g/dL (12.0-15.5); Mean Corpuscular HGB CONC 35.6 g/dL (32.0-36.0); Mean Corpuscular Hemoglobin 31.7 pg (27.0-33.0); Platelet Count 396 10x3/uL (150-450); Red Blood Cell (RBC) Count 2.46 10x6/uL (3.90-5.03); White Blood Cell (WBC) Count 12.9 10x3/uL (3.5-10.5)
[2022-10-07 04:55] LABS: ALT (SGPT) 13 U/L (8-55); AST (SGOT) 23 U/L (5-34); Albumin 2.3 g/dL (3.4-4.8); Alkaline Phosphatase 259 U/L (40-110); Anion Gap 11 mmol/L (10-20); BUN (Urea Nitrogen) 10 mg/dL (9.8-20.1); Bilirubin, Total 0.4 mg/dL (0.2-1.2); Calc. Creatinine Clearance 90 mL/min (70-130); Calcium 7.8 mg/dL (7.8-10.44); Carbon Dioxide 24 mmol/L (23-31); Chloride 106 mmol/L (98-107); Estimated GFR 97; Globulin 1.8 g/dL (2.4-3.5); Glucose 164 mg/dL (80-115); Magnesium 1.4 mg/dL (1.6-2.6); Potassium 3.5 mmol/L (3.5-5.1); Protein, Total 4.1 g/dL (5.8-8.1); Sodium 137 mmol/L (136-145)
[2022-10-07] MEDS ORDERED: Magnesium 2 GM/50 ML(in water) 2 GM in Premix Bag 1 BAG IVPB SCH ×2 (05:15→06:00)
[2022-10-07] MEDS: Levothyroxine 150 MCG TAB PO SCH (07:30)
[2022-10-07] MEDS ORDERED: Potassium Bicarbonate/Cit Ac 20 MEQ TAB PO SCH (08:00)
[2022-10-07] MEDS ORDERED: Potassium Chloride 20 MEQ TAB PO SCH (08:00)
[2022-10-07] MEDS: Liothyronine Sodium 5 MCG TAB PO SCH ×2 (11:03→22:03)
[2022-10-07] MEDS: Sodium Chloride 0.9% 1,000 ML IV SCH ×4 (11:03→22:08)
[2022-10-07] MEDS: metFORMIN 500 MG TAB PO SCH (11:03)
[2022-10-07] MEDS: Furosemide 20 MG TAB PO SCH (11:03)
[2022-10-07] MEDS: Pantoprazole 80 MG in Sodium Chloride 0.9% 100 ML IVPB SCH ×2 (11:07→22:33)
[2022-10-07] MEDS: HumaLOG 300 UNITS/3 ML VIAL SC PRN ×3 (12:19→22:03)
[2022-10-07] MEDS: Cholestyramine/Aspartame 4 gm Packet PO SCH ×2 (12:20→22:00)
[2022-10-07 12:48] LABS: #Monocytes 0.6 10x3/uL (0.0-1.1); #Neutrophils 12.3 10x3/uL (1.5-8.4); %Basophils 0.1 % (0.0-2.0); %Lymphocytes 7.1 % (18.0-47.0); Hemoglobin 8.2 g/dL (12.0-15.5); Mean Corpuscular HGB CONC 34.3 g/dL (32.0-36.0); Mean Corpuscular Hemoglobin 31.4 pg (27.0-33.0); Mean Corpuscular Volume 91.6 fl (81.6-98.3); Mean Platelet Volume 10.8 fl (7.4-10.4); Platelet Count 446 10x3/uL (150-450); RBC Distribution Width 16.5 % (11.5-14.5); Red Blood Cell (RBC) Count 2.61 10x6/uL (3.90-5.03); White Blood Cell (WBC) Count 14.2 10x3/uL (3.5-10.5)
[2022-10-07] MEDS ORDERED: GoLYTELY 4,000 ml Bottle PO SCH (15:30)
[2022-10-07] MEDS: Nicotine 14 MG PATCH TD SCH (17:58)
[2022-10-07] MEDS: Atorvastatin Calcium 40 MG TAB PO SCH (22:03)
[2022-10-08 04:53] LABS: #Basophils 0.1 10x3/uL (0.0-0.2); #Eosinphils 0.1 10x3/uL (0.0-0.5); #Neutrophils 10.5 10x3/uL (1.5-8.4); %Basophils 0.4 % (0.0-2.0); %Eosinophils 0.6 % (0.0-6.0); %Lymphocytes 14.8 % (18.0-47.0); %Monocytes 6.9 % (0.0-10.0); Hemoglobin 8.5 g/dL (12.0-15.5); Mean Corpuscular HGB CONC 34.7 g/dL (32.0-36.0); Mean Corpuscular Hemoglobin 31.3 pg (27.0-33.0); Mean Corpuscular Volume 90.1 fl (81.6-98.3); Mean Platelet Volume 10.5 fl (7.4-10.4); Platelet Count 448 10x3/uL (150-450); RBC Distribution Width 16.3 % (11.5-14.5); Red Blood Cell (RBC) Count 2.72 10x6/uL (3.90-5.03); White Blood Cell (WBC) Count 13.9 10x3/uL (3.5-10.5)
[2022-10-08 05:13] LABS: Anion Gap 12 mmol/L (10-20); BUN (Urea Nitrogen) 10 mg/dL (9.8-20.1); Calc. Creatinine Clearance 93 mL/min (70-130); Calcium 7.8 mg/dL (7.8-10.44); Carbon Dioxide 23 mmol/L (23-31); Chloride 109 mmol/L (98-107); Estimated GFR 98; Glucose 102 mg/dL (80-115); Sodium 141 mmol/L (136-145)
[2022-10-08] MEDS: Levothyroxine 150 MCG TAB PO SCH (06:54)
[2022-10-08] MEDS ORDERED: Potassium Bicarbonate/Cit Ac 20 MEQ TAB PO SCH (08:00)
[2022-10-08] MEDS: Liothyronine Sodium 5 MCG TAB PO SCH ×2 (08:46→21:36)
[2022-10-08] MEDS: Furosemide 20 MG TAB PO SCH (08:46)
[2022-10-08] MEDS: metFORMIN 500 MG TAB PO SCH (08:46)
[2022-10-08] MEDS: Cholestyramine/Aspartame 4 gm Packet PO SCH ×2 (08:46→23:29)
[2022-10-08] MEDS: Sodium Chloride 0.9% 1,000 ML IV SCH ×3 (08:47→21:37)
[2022-10-08] MEDS: Potassium Chloride 20 MEQ in Premix Bag 1 BAG IVPB SCH ×2 (10:27→12:09)
[2022-10-08] MEDS: Nicotine 14 MG PATCH TD SCH (17:06)
[2022-10-08 17:38] LABS: Potassium 3.6 mmol/L (3.5-5.1)
[2022-10-08] MEDS: Atorvastatin Calcium 40 MG TAB PO SCH (21:36)
[2022-10-09] MEDS: Pantoprazole 80 MG in Sodium Chloride 0.9% 100 ML IVPB SCH (05:04)
[2022-10-09] MEDS: Sodium Chloride 0.9% 1,000 ML IV SCH ×3 (05:04→20:24)
[2022-10-09] MEDS: Levothyroxine 150 MCG TAB PO SCH (05:10)
[2022-10-09 05:54] LABS: #Basophils 0.1 10x3/uL (0.0-0.2); #Monocytes 0.8 10x3/uL (0.0-1.1); #Neutrophils 9.1 10x3/uL (1.5-8.4); %Basophils 0.6 % (0.0-2.0); %Eosinophils 0.3 % (0.0-6.0); %Lymphocytes 11.4 % (18.0-47.0); %Monocytes 6.5 % (0.0-10.0); %Neutrophils 79.2 % (40.0-75.0); Hemoglobin 8.4 g/dL (12.0-15.5); Mean Corpuscular HGB CONC 34.3 g/dL (32.0-36.0); Mean Corpuscular Hemoglobin 31.5 pg (27.0-33.0); Mean Corpuscular Volume 91.8 fl (81.6-98.3); Mean Platelet Volume 10.8 fl (7.4-10.4); Platelet Count 497 10x3/uL (150-450); Red Blood Cell (RBC) Count 2.67 10x6/uL (3.90-5.03); White Blood Cell (WBC) Count 11.5 10x3/uL (3.5-10.5)
[2022-10-09 06:07] LABS: Anion Gap 14 mmol/L (10-20); BUN (Urea Nitrogen) 5 mg/dL (9.8-20.1); Calc. Creatinine Clearance 95 mL/min (70-130); Calcium 7.5 mg/dL (7.8-10.44); Carbon Dioxide 20 mmol/L (23-31); Chloride 106 mmol/L (98-107); Estimated GFR 99; Glucose 283 mg/dL (80-115); Potassium 3.2 mmol/L (3.5-5.1); Sodium 137 mmol/L (136-145)
[2022-10-09] MEDS: Potassium Chloride 20 MEQ in Premix Bag 1 BAG IVPB SCH ×2 (08:47→09:26)
[2022-10-09] MEDS: Furosemide 20 MG TAB PO SCH (08:47)
[2022-10-09] MEDS: metFORMIN 500 MG TAB PO SCH (08:47)
[2022-10-09] MEDS: Liothyronine Sodium 5 MCG TAB PO SCH ×2 (08:47→20:23)
[2022-10-09 08:48] LABS: Magnesium 1.3 mg/dL (1.6-2.6)
[2022-10-09] MEDS: Cholestyramine/Aspartame 4 gm Packet PO SCH ×2 (08:48→20:23)
[2022-10-09] MEDS: Magnesium 2 GM/50 ML(in water) 2 GM in Premix Bag 1 BAG IVPB SCH ×2 (09:25→11:22)
[2022-10-09] MEDS: HumaLOG 300 UNITS/3 ML VIAL SC PRN ×2 (12:49→17:19)
[2022-10-09] MEDS ORDERED: PROPOFOL 20 ML ONE (14:20)
[2022-10-09] MEDS ORDERED: ePHEDrine Sulfate 50 MG/10 ML VIAL ONE (14:44)
[2022-10-09] MEDS: Nicotine 14 MG PATCH TD SCH (16:53)
[2022-10-09] MEDS: Atorvastatin Calcium 40 MG TAB PO SCH (20:23)
[2022-10-10 05:17] LABS: #Basophils 0.1 10x3/uL (0.0-0.2); #Eosinphils 0.1 10x3/uL (0.0-0.5); #Neutrophils 12.4 10x3/uL (1.5-8.4); %Basophils 0.5 % (0.0-2.0); %Eosinophils 0.5 % (0.0-6.0); %Lymphocytes 11.8 % (18.0-47.0); %Monocytes 6.7 % (0.0-10.0); %Neutrophils 79.2 % (40.0-75.0); Hemoglobin 8.5 g/dL (12.0-15.5); Mean Corpuscular HGB CONC 34.1 g/dL (32.0-36.0); Mean Corpuscular Hemoglobin 31.6 pg (27.0-33.0); Mean Corpuscular Volume 92.6 fl (81.6-98.3); Mean Platelet Volume 10.6 fl (7.4-10.4); Platelet Count 530 10x3/uL (150-450); RBC Distribution Width 17.8 % (11.5-14.5); Red Blood Cell (RBC) Count 2.69 10x6/uL (3.90-5.03); White Blood Cell (WBC) Count 15.6 10x3/uL (3.5-10.5)
[2022-10-10 05:33] LABS: Anion Gap 12 mmol/L (10-20); BUN (Urea Nitrogen) 6 mg/dL (9.8-20.1); Calc. Creatinine Clearance 91 mL/min (70-130); Calcium 7.7 mg/dL (7.8-10.44); Carbon Dioxide 21 mmol/L (23-31); Chloride 108 mmol/L (98-107); Estimated GFR 98; Glucose 212 mg/dL (80-115); Magnesium 1.7 mg/dL (1.6-2.6); Potassium 3.5 mmol/L (3.5-5.1); Sodium 137 mmol/L (136-145)
[2022-10-10] MEDS: Levothyroxine 150 MCG TAB PO SCH (05:54)
[2022-10-10] MEDS: Sodium Chloride 0.9% 1,000 ML IV SCH (05:54)
[2022-10-10] MEDS: metFORMIN 500 MG TAB PO SCH (08:29)
[2022-10-10] MEDS: Furosemide 20 MG TAB PO SCH (08:29)
[2022-10-10] MEDS: Cholestyramine/Aspartame 4 gm Packet PO SCH ×2 (08:29→20:42)
[2022-10-10] MEDS: Liothyronine Sodium 5 MCG TAB PO SCH ×2 (08:29→20:42)
[2022-10-10] MEDS ORDERED: Potassium Bicarbonate/Cit Ac 20 MEQ TAB PO SCH (09:00)
[2022-10-10] MEDS ORDERED: Magnesium 2 GM/50 ML(in water) 2 GM in Premix Bag 1 BAG IVPB SCH (09:00)
[2022-10-10] MEDS: HumaLOG 300 UNITS/3 ML VIAL SC PRN ×2 (12:11→17:04)
[2022-10-10] MEDS: Nicotine 14 MG PATCH TD SCH (15:54)
[2022-10-10] MEDS: Atorvastatin Calcium 40 MG TAB PO SCH (20:42)
[2022-10-10] MEDS: Apixaban 5 MG TAB PO SCH (20:42)
[2022-10-11 05:27] LABS: Anion Gap 11 mmol/L (10-20); BUN (Urea Nitrogen) 7 mg/dL (9.8-20.1); Calc. Creatinine Clearance 84 mL/min (70-130); Carbon Dioxide 23 mmol/L (23-31); Chloride 108 mmol/L (98-107); Estimated GFR 96; Glucose 114 mg/dL (80-115); Magnesium 1.8 mg/dL (1.6-2.6); Potassium 3.5 mmol/L (3.5-5.1); Sodium 138 mmol/L (136-145)
[2022-10-11 05:35] LABS: #Basophils 0.1 10x3/uL (0.0-0.2); #Eosinphils 0.1 10x3/uL (0.0-0.5); %Basophils 0.6 % (0.0-2.0); %Eosinophils 0.7 % (0.0-6.0); %Monocytes 7.1 % (0.0-10.0); %Neutrophils 77.5 % (40.0-75.0); Hemoglobin 8.8 g/dL (12.0-15.5); Mean Corpuscular HGB CONC 33.8 g/dL (32.0-36.0); Mean Corpuscular Hemoglobin 31.5 pg (27.0-33.0); Mean Corpuscular Volume 93.2 fl (81.6-98.3); Mean Platelet Volume 10.6 fl (7.4-10.4); Platelet Count 559 10x3/uL (150-450); RBC Distribution Width 18.1 % (11.5-14.5); Red Blood Cell (RBC) Count 2.79 10x6/uL (3.90-5.03); White Blood Cell (WBC) Count 14.2 10x3/uL (3.5-10.5)
[2022-10-11] MEDS: Levothyroxine 150 MCG TAB PO SCH (06:56)
[2022-10-11] MEDS ORDERED: Magnesium 2 GM/50 ML(in water) 2 GM in Premix Bag 1 BAG IVPB SCH (08:00)
[2022-10-11] MEDS ORDERED: Potassium Chloride 20 MEQ TAB PO SCH (08:00)
[2022-10-11] MEDS: Furosemide 20 MG TAB PO SCH (10:53)
[2022-10-11] MEDS: metFORMIN 500 MG TAB PO SCH (10:53)
[2022-10-11] MEDS: Liothyronine Sodium 5 MCG TAB PO SCH ×2 (10:53→21:04)
[2022-10-11] MEDS: Apixaban 5 MG TAB PO SCH ×2 (10:54→21:04)
[2022-10-11] MEDS: Cholestyramine/Aspartame 4 gm Packet PO SCH ×2 (10:55→21:04)
[2022-10-11 13:40] LABS: Activated Protein C Resistance 2.5 ratio (.)
[2022-10-11] MEDS: Nicotine 14 MG PATCH TD SCH (17:45)
[2022-10-11] MEDS: HumaLOG 300 UNITS/3 ML VIAL SC PRN (20:45)
[2022-10-11] MEDS: Atorvastatin Calcium 40 MG TAB PO SCH (21:04)
[2022-10-12 05:37] LABS: Anion Gap 13 mmol/L (10-20); BUN (Urea Nitrogen) 5 mg/dL (9.8-20.1); Calc. Creatinine Clearance 90 mL/min (70-130); Calcium 8.3 mg/dL (7.8-10.44); Carbon Dioxide 25 mmol/L (23-31); Chloride 103 mmol/L (98-107); Estimated GFR 97; Glucose 146 mg/dL (80-115); Potassium 3.7 mmol/L (3.5-5.1); Sodium 137 mmol/L (136-145)
[2022-10-12 05:39] LABS: #Basophils 0.1 10x3/uL (0.0-0.2); #Eosinphils 0.1 10x3/uL (0.0-0.5); #Monocytes 0.8 10x3/uL (0.0-1.1); #Neutrophils 8.6 10x3/uL (1.5-8.4); %Basophils 0.8 % (0.0-2.0); %Lymphocytes 12.7 % (18.0-47.0); %Monocytes 7.4 % (0.0-10.0); %Neutrophils 76.9 % (40.0-75.0); Hemoglobin 9.1 g/dL (12.0-15.5); Mean Corpuscular HGB CONC 33.7 g/dL (32.0-36.0); Mean Corpuscular Hemoglobin 31.4 pg (27.0-33.0); Mean Corpuscular Volume 93.1 fl (81.6-98.3); Mean Platelet Volume 10.5 fl (7.4-10.4); Platelet Count 595 10x3/uL (150-450); RBC Distribution Width 18.2 % (11.5-14.5); White Blood Cell (WBC) Count 11.2 10x3/uL (3.5-10.5)
[2022-10-12] MEDS: Levothyroxine 150 MCG TAB PO SCH (06:40)
[2022-10-12] MEDS: Liothyronine Sodium 5 MCG TAB PO SCH ×2 (10:37→21:55)
[2022-10-12] MEDS: Cholestyramine/Aspartame 4 gm Packet PO SCH ×2 (10:37→21:56)
[2022-10-12] MEDS: Furosemide 20 MG TAB PO SCH (10:38)
[2022-10-12] MEDS: Apixaban 5 MG TAB PO SCH ×2 (10:38→21:58)
[2022-10-12] MEDS: Aspirin 81 mg Enteric Coated Tablet PO SCH (10:38)
[2022-10-12] MEDS: metFORMIN 500 MG TAB PO SCH (18:17)
[2022-10-12] MEDS: Nicotine 14 MG PATCH TD SCH (18:23)
[2022-10-12] MEDS: HumaLOG 300 UNITS/3 ML VIAL SC PRN (18:48)
[2022-10-12] MEDS: Atorvastatin Calcium 40 MG TAB PO SCH (21:55)
[2022-10-13] MEDS: Acetaminophen 325 MG TAB PO PRN (05:30)
[2022-10-13] MEDS: Levothyroxine 150 MCG TAB PO SCH (05:30)
[2022-10-13] MEDS: HumaLOG 300 UNITS/3 ML VIAL SC PRN ×2 (06:48→11:54)
[2022-10-13] MEDS ORDERED: Pantoprazole 40 MG VIAL IVP SCH ×2 (08:00→21:00)
[2022-10-13] MEDS: Liothyronine Sodium 5 MCG TAB PO SCH (08:31)
[2022-10-13] MEDS: metFORMIN 500 MG TAB PO SCH ×2 (08:31→17:06)
[2022-10-13] MEDS: Cholestyramine/Aspartame 4 gm Packet PO SCH (08:31)
[2022-10-13] MEDS: Aspirin 81 mg Enteric Coated Tablet PO SCH (08:31)
[2022-10-13] MEDS: Furosemide 20 MG TAB PO SCH (08:32)
[2022-10-13] MEDS: Apixaban 5 MG TAB PO SCH (08:32)
[2022-10-13 13:26] VITALS: BP 153/81; TEMP 98.1
[2022-10-13] MEDS: Nicotine 14 MG PATCH TD SCH (17:06)
== END 2022-10-13 17:46 | DRG 64 ==
LOC: CSHERS 10:31 → CSHTELE 16:57
PROVIDERS: ADMIT Internal Medicine; ATTEND Family Medicine
PROC: 8E0ZXY6 Isolation (ICD-10-PCS; principal; 2022-09-25)
PROC: XW0DXF5 Introduction of Other New Technology Therapeutic Substance into Mouth and Pharynx, External Approach, New Technology Group 5 (ICD-10-PCS; 2022-09-25)
PROC: 3E03329 Introduction of Other Anti-infective into Peripheral Vein, Percutaneous Approach (ICD-10-PCS; 2022-09-25)
PROC: 0DJ08ZZ Inspection of Upper Intestinal Tract, Via Natural or Artificial Opening Endoscopic (ICD-10-PCS; 2022-10-09)
PROC: 0DJD8ZZ Inspection of Lower Intestinal Tract, Via Natural or Artificial Opening Endoscopic (ICD-10-PCS; 2022-10-09)
DX: I63.9 Cerebral infarction, unspecified (principal); A41.9 Sepsis, unspecified organism; G93.41 Metabolic encephalopathy; U07.1 COVID-19; I21.A1 Myocardial infarction type 2; E87.20 Acidosis, unspecified; N17.9 Acute kidney failure, unspecified; J90 Pleural effusion, not elsewhere classified; A02.0 Salmonella enteritis; I82.622 Acute embolism and thrombosis of deep veins of left upper extremity; K92.2 Gastrointestinal hemorrhage, unspecified; E03.9 Hypothyroidism, unspecified; I10 Essential (primary) hypertension; K52.9 Noninfective gastroenteritis and colitis, unspecified; E11.42 Type 2 diabetes mellitus with diabetic polyneuropathy; K21.9 Gastro-esophageal reflux disease without esophagitis; Z60.2 Problems related to living alone; E87.6 Hypokalemia; F17.210 Nicotine dependence, cigarettes, uncomplicated; K64.4 Residual hemorrhoidal skin tags; K64.8 Other hemorrhoids; K57.30 Diverticulosis of large intestine without perforation or abscess without bleeding; F41.9 Anxiety disorder, unspecified; Z90.710 Acquired absence of both cervix and uterus; Z85.09 Personal history of malignant neoplasm of other digestive organs; Z90.49 Acquired absence of other specified parts of digestive tract; Z79.899 Other long term (current) drug therapy; Z79.890 Hormone replacement therapy; Z79.84 Long term (current) use of oral hypoglycemic drugs; Z82.49 Family history of ischemic heart disease and other diseases of the circulatory system; Z82.3 Family history of stroke; Z71.6 Tobacco abuse counseling; Z98.84 Bariatric surgery status
CPT/HCPCS: 36415; 36416; 70450; 70551; 71045; 71275; 74177; 80048; 80053; 80061; 80076; 80306; 80307; 81003; 82140; 82274; 82533; 82977; 83090; 83605; 83630; 83690; 83735; 83880; 84100; 84439; 84443; 84481; 84484; 85014; 85018; 85025; 85240; 85300; 85303; 85305; 85307; 85379; 85598; 85610; 85730; 86140; 86147; 86780; 86850; 86900; 86901; 87040; 87086; 87324; 87389; 87449; 87505; 93005; 93306; 93880; 93970; 94760; 94762; 95816; 95819; 95957; 96361; 96374; 99285; C9113; J0696; J1650; J1815; J1940; J1956; J2405; J2543; J2550; J2704; J3370; J3475; J3480; J3490; J7050; J7999; P9047; Q0162; Q9967; U0002

== ENCOUNTER → 2024-08-13 | Emergency (ER) | payer MEDICARE ==
[~2024-08-13] MED LIST changes: -Iopamidol 370 76% 100 ML VIAL ONE; +Morphine 2 MG/ML VIAL ONE; +Ondansetron PF 4 MG/2 ML Vial ONE
== END ==
LOC: CSHERS 17:28
DX: I21.4 Non-ST elevation (NSTEMI) myocardial infarction (principal); I10 Essential (primary) hypertension; E11.9 Type 2 diabetes mellitus without complications; F17.210 Nicotine dependence, cigarettes, uncomplicated; Z55.6 Problems related to health literacy
CPT/HCPCS: 74177; 76705; 84484; 96374; 96375; J2272; J2405